=== PATIENT | male | born 1995 | race Caucasian/White ===

== ENCOUNTER 2023-07-29 20:46 | Emergency (ER) | payer BC, SELFPAY ==
[2023-07-29 20:54] VITALS: BP 101/78; BMI 20.1
[2023-07-29 21:12] LABS: % Basophils 0.7 % (0-2); % Eosinophils 3.7 % (0-6); % Immature Granulocytes 0.1 % (0-0.5); % Lymphocytes 30.6 % (20.5-51.1); % Monocytes 9.5 % (1.7-9.3); % Neutrophils 55.4 % (42.2-75.2); Absolute Basophils 0.1 10^3/uL (0-0.2); Absolute Eosinophils 0.3 10^3/uL (0-0.7); Absolute Lymphocytes 2.1 10^3/uL (1.2-3.4); Absolute Monocytes 0.7 10^3/uL (0.1-0.6); Absolute Neutrophils 3.8 10^3/uL (1.4-6.5); Hematocrit 42.6 % (39.0-52.0); Hemoglobin 14.8 g/dL (13.0-18.0); Mean Corp Hgb Conc. 34.7 g/dL (33.0-37.0); Mean Corpuscular Hgb 29.8 pg (27.0-31.0); Mean Corpuscular Volume 85.7 fL (80.0-94.0); Mean Platelet Volume 10.5 fL (7.4-10.4); Nucleated Red Blood Cells % 0 % (-); Platelet Count 169 10^3/uL (130-400); Red Blood Cell Count 4.97 10^6/uL (4.70-6.10); Red Cell Dist. Width 12.6 % (11.5-14.5); White Blood Cell Count 6.8 10^3/uL (4.8-10.8)
[2023-07-29 21:42] LABS: ALT (SGPT) 11 U/L (0-50); AST (SGOT) 18 U/L (17-59); Albumin 4.5 g/dl (3.5-5.0); Alkaline Phosphatase 62 U/L (38-126); Blood Urea Nitrogen 13 mg/dl (9-20); Calcium 9.7 mg/dl (8.4-10.2); Carbon Dioxide 29 mmol/L (22-30); Chloride 100 mmol/L (98-107); Estimated Creatinine Clearance 101 ml/min; Glucose 142 mg/dl (70-99); Potassium 3.9 mmol/L (3.5-5.1); Sodium 138 mmol/L (135-145); Total Bilirubin 0.7 mg/dl (0.2-1.3); Total Protein 7.1 g/dl (6.3-8.2); eGFR > 60.00
--- NOTE | 2023-07-30 01:03 | ED.GENMED ---
History of Present Illness
General
Chief Complaint: Anxiety
Source: patient and family
Exam Limitations: none
Time Seen by Provider: 07/30/23 00:55
Nursing documentation reviewed up to this point in time: agreed with
Travel History
Have you had any contact with someone who has COVID-19?: No
Do you have any symptoms of coronavirus? Fever > 100 degrees, chills, cough, shortness of breath, sore throat, loss of taste or smell, muscle aches, or headache?: No
History of Present Illness
History of Present Illness:
Patient is a 27-year-old man with a past medical history of anxiety and depression who has multiple complaints. Patient complains of several weeks to months of generalized fatigue. In addition, he reports feeling shaky in both arms. He reports
several months of abdominal upset, decreased appetite, and early satiety. Patient reports he was at urgent care earlier today with complaints of shaking in both hands as well as low blood pressure, and was encouraged to be checked in the emergency
department. Patient denies headache, focal weakness or numbness, vision changes, fever and rash. He reports he was recently started on Wellbutrin and the dose of his gabapentin was recently decreased
Past History
Past History
ED Past Medical History: Psychiatric (Anxiety/depression)
ED Past Surgical History: Appendectomy
Social History
Tobacco: Non-smoker
Alcohol: None
Drug: None
Personal: Single
Living: with family
Employment: Employed
Family History
Family History: Unable to obtain (Noncontributory)
Review of Systems
Review of Systems
Allergies reviewed?: Yes
Other source history: family
All Other Systems: ROS reviewed and negative except as documented in HPI and ROS
Constitutional: Reports fatigue
EENT: Reports other (Dry mouth)
Respiratory: Reports no symptoms
Cardiac: Reports no symptoms
ABD/GI: Reports anorexia
: Reports no symptoms
Musculoskeletal: Reports no symptoms
Skin: Reports no symptoms
Neurological: Reports no symptoms
Endocrine: Reports no symptoms
Hematologic/Lymphatic: Reports no symptoms
Psychiatric: Reports anxiety
Phy Exam
Physical Exam
Physical Exam:
Physical Exam
General: no apparent distress, conversational and smiling but appears slightly anxious
Neck: supple. no meningeal signs. normal psoterior pharynx
Heart: s1/s2 regular rate and rhythm, no murmur. equal radial pulses.
Lungs: no acute respiratory distress. clear bilaterally
Abdomen: normal bowel sounds. not tender. no CVAT
Neuro: alert and orientedx3. no focal neurological deficits. Fine tremor in hands
Skin: no rash
Psychiatric: well kept. interactive and cooperative
Extremities: no edema. no calf tenderness. negative homans. good distal pulses
Course
Orders/Labs/Results
Orders:
Orders
07/29/23 20:59
Electrocardiogram (*1) Urgent
Reason for Study: Chest Pain
EKG- Treatment ONCE
07/29/23 21:08
Complete Blood Count/With Diff Urgent
Comprehensive Metabolic Panel Urgent
TSH Reflex To Free T4 Urgent
Comment: ADD ON
07/30/23 01:17
0.9% Sodium Chloride 1000 ml [Nss] 1,000 ml IV BOLUS
07/30/23 01:25
Add On- LAB Urgent
Tests Added?: TSH
Abnormal Lab Results
07/29/23
21:08
MPV 10.5 H fL
(7.4-10.4)
Absolute Monos (auto) 0.7 H 10^3/uL
(0.1-0.6)
Monocytes % 9.5 H %
(1.7-9.3)
Glucose 142 H mg/dl
(70-99)
07/29/23 21:08
07/29/23 21:08
Vital Signs
Initial and Last Documented VS:
Initial Vital Signs
Temp Pulse Resp BP Pulse Ox
98.1 F 115 16 101/78 98
07/29/23 20:54 07/29/23 20:54 07/29/23 20:54 07/29/23 20:54 07/29/23 20:54
Last Documented Vital Signs
Temp Pulse Resp BP Pulse Ox
98.1 F 86 18 95/65 97
07/29/23 20:54 07/30/23 02:20 07/30/23 02:20 07/30/23 02:20 07/30/23 02:20
MDM/Problems Addressed
Differential Diagnosis Includes:
Dehydration, hypothyroidism, acute anxiety
MDM/Problems Addressed:
Presents with acute bilateral hand tremor
Chronic conditions affecting care: Psychiatric illness
*Pulse Oximetry
Patient hypoxic: no
*EKG
Interpreted by ED Provider?: Yes
Interpretation: normal
Comparison EKG: no comparison EKG present
Rate: normal
Rhythm: sinus
S[place]cer: normal axis
Interval: normal interval
QRS Pattern: normal QRS
Ischemia: no ischemia
*Operations Plant Attendant Interpretation
Rate: normal
Interpretation: normal
Rhythm: sinus
*Critical Care Note
Total Time (30-74mins, 75-104mins- exclusive of procedures): Not Applicable
Data Reviewed
Source: patient and family
Patient Management
Social determinants of health affecting care: Living situation and Strong social support
Escalation/DeEscalation of care consider admission/obs:
I feel patient's tremor is multifactorial. Patient does have anxiety but has good social support and has a therapist. In addition, patient is on several medications and recently started Wellbutrin. This may be contributing as well to the tremor.
I suggested that the patient follow-up with his therapist and psychiatrist in regards to the anxiety and tremor. In regards to the patient's anorexia and early satiety, I recommended that patient follow-up with GI. Patient has no specific
abdominal pain at this time and reports he is having normal bowel movements
ED Attending Note
-
Portions of this chart may have been created with voice recognition software.� Occasional wrong word or��sound alike� substitutions may have occurred due to the inherent limitations of voice recognition software.
Discharge Plan
Departure
Patient Disposition: Home (Routine Discharge)
Date of Disposition: 07/30/23
Time of Disposition: 02:21
Patient with high blood pressure during this ER visit?: No
Condition: Good
Covid-19: Not Applicable
Discharge Problem:
acute tremor
Instructions: Tremor
Prescriptions:
No Action
alprazolam 0.5 MG tablet
0.5 mg PO DAILYPRN PRN (Reason: ANXIETY)
levothyroxine [Synthroid] 25 mcg Tablet
25 mcg PO DAILY
gabapentin 300 mg Tablet
300 mg PO DAILY
Referrals:
Adelso Palomares MD [Active] - (Call for next open appointment)
Beny Baer, DO [Active] -
UNKNOWN - PT DOES,NOT KNOW [Family Provider] -
Interventions
Interventions:
*Risk Screen - Suicide Last Done: 07/29/23 20:54
*Neglect/Abuse Screening Last Done: 07/29/23 20:54
*ED COVID-19 Vaccine History Last Done: 07/29/23 20:54
*Nursing Disposition Last Done: 07/30/23 02:34
ED-Psychological Assessment Last Done: 07/30/23 01:45
[2023-07-30] MEDS: NSS 1000 IV (01:23)
[2023-07-30 01:44] VITALS: BP 103/67
[2023-07-30 02:20] VITALS: BP 95/65
[2023-07-30 03:47] LABS: TSH Reflex To Free T4 0.53 uIU/ml (0.47-4.68)
== END 2023-07-30 02:36 | disposition home or self-care (01) ==
LOC: EMR 20:46
PROVIDERS: Emergency Medicine; EMERGENCY PHYSICIAN Emergency Medicine
DX: R25.1 Tremor, unspecified (principal); F41.9 Anxiety disorder, unspecified; F32.A Depression, unspecified
CPT/HCPCS: 99284; 96360; 80053; 84443; 85025; 93005